=== PATIENT | female | born 1965 | race Native Hawaiian/Other Pacific Islander ===

== ENCOUNTER 2018-06-21 20:45 | Emergency (ER) | payer OTHER ==
[2018-06-21 21:09] VITALS: BP 151/94
[2018-06-21] MEDS ORDERED: NACL 0.9% 1000 ML 1,000 ML IV ONE (21:29)
--- NOTE | 2018-06-21 21:31 | Emergency Department Report ---
Chief Complaint: Abdominal Pain Stated Complaint: GALLSTONES Time Seen by Provider: 06/21/18 21:27 - HPI History of Present Illness: This is a 52 y.o. female that presents with abdominal pain radiating to back. + nausea and vomiting Hx kidney stones - Exam Vital Signs: Vital Signs 06/21/18 21:06 Temperature 97.7 F Pulse Rate 73 Respiratory 22 Rate Blood Pressure 151/94 [Right] O2 Sat by Pulse 96 Oximetry MSE screening note: Focused history and physical exam performed. Due to findings the following was ordered: Labs and CT of abdomen and pelvis. Main ED for further evaluation. ED Disposition for MSE Condition: Stable Instructions: Abdominal Pain (ED)
[2018-06-21 22:10] LABS: Basophils % (Auto) 0.3 % (0.0-1.8); Eosinophils # (Auto) 0.1 K/mm3 (0.0-0.4); Eosinophils % (Auto) 1.2 % (0.0-4.3); Hematocrit 39.7 % (30.3-42.9); Hemoglobin 13.1 gm/dl (10.1-14.3); Lymphocytes # (Auto) 1.8 K/mm3 (1.2-5.4); Mean Corpuscular HGB Conc 33 % (30-34); Mean Corpuscular Volume 80 fl (79-97); Monocytes # (Auto) 0.7 K/mm3 (0.0-0.8); Monocytes % (Auto) 6.7 % (0.0-7.3); Platelet Count 280 K/mm3 (140-440); Red Blood Count 4.94 M/mm3 (3.65-5.03); Red Cell Distribution Width 14.5 % (13.2-15.2)
[2018-06-21 22:29] LABS: Alanine Aminotransferase 34 units/L (7-56); Albumin 4.1 g/dL (3.9-5)
[2018-06-21 22:43] LABS: BUN/Creatinine Ratio 17; Blood Urea Nitrogen 10 mg/dL (7-17); Calcium 9.3 mg/dL (8.4-10.2); Hemolysis Index 6
[2018-06-22] MEDS ORDERED: TYLENOL ONE (01:08)
== END 2018-06-22 02:00 | disposition left against medical advice (07) ==
LOC: ED 20:45
DX: K80.20 Calculus of gallbladder without cholecystitis without obstruction (principal); Z53.21 Procedure and treatment not carried out due to patient leaving prior to being seen by health care provider
CPT/HCPCS: 36415; 80053; 83690; 85025